=== PATIENT | female | born 1970 | race African-American/Black ===

== ENCOUNTER 2019-03-08 18:59 | Emergency (ER) | payer MEDICAID ==
[~2019-03-08] VITALS: Ht 162.6 cm; Wt 75.0 kg
[2019-03-08] MEDS ORDERED: SODIUM CHLORIDE 0.9% 1,000 ML IV ONE (22:32)
[2019-03-08] MEDS ORDERED: ONDANSETRON HCL 4MG/2ML INJ IV STA (22:32)
[2019-03-08] MEDS ORDERED: MORPHINE SULFATE 4 MG/ML CPJ (NOT FOR IM USE) IV STA (22:32)
[2019-03-08] MEDS ORDERED: DIATR MEGLU/DIATRIZOATE SOLN 30ML ONE (22:50)
[2019-03-08 23:14] LABS: EOSINOPHILS % 0.9 % (0.0-5.0); HEMATOCRIT. 45.3 % (36.0-48.0); HEMOGLOBIN. 15.2 g/dL (12.0-16.0); LYMPHOCYTES % 31.7 % (20.0-50.0); MEAN CORPUSCULAR HEMOGLOBIN 31.5 pg (28.0-32.0); MEAN CORPUSCULAR VOLUME 93.7 fL (81.0-99.0); MEAN PLATELET VOLUME 9.3 fl (7.4-10.4); MONOCYTES % 8.5 % (2.0-8.0); NEUTROPHILS % 57.9 % (40.0-76.0); PLATELET 231 x1000/uL (130-400); RED BLOOD CELL COUNT 4.83 mill/uL (4.2-5.4); RED CELL DISTRIBUTION WIDTH 12.8 % (11.6-14.6)
[2019-03-08 23:20] LABS: CHLORIDE 107 mEq/L (98-107); PROTHROMBIN TIME 10.8 sec (9.6-11.0)
[2019-03-09] MEDS ORDERED: POTASSIUM CHLORIDE 20MEQ TABLET SR PO ONE
[2019-03-09 00:50] LABS: CLARITY URINE CLEAR (CLEAR); COLOR URINE YELLOW (YELLOW); KETONES URINE TRACE (NEGATIVE); LEUKOCYTE ESTERASE URINE TRACE (NEGATIVE); NITRITE URINE NEGATIVE (NEGATIVE); OCCULT BLOOD URINE NEGATIVE (NEGATIVE); PH URINE 5.5 (4.5-8.0); PROTEIN URINE TRACE (NEGATIVE); SPECIFIC GRAVITY URINE 1.023 (1.005-1.030)
[2019-03-09] MEDS ORDERED: IOHEXOL-300 100 ML BOTTLE ONE (02:22)
[2019-03-09] MEDS ORDERED: MORPHINE SULFATE 4 MG/ML CPJ (NOT FOR IM USE) IV ONE (02:30)
[2019-03-09 03:07] VITALS: BP 125/91
== END 2019-03-09 03:14 | disposition home or self-care (01) ==
LOC: ER 18:59
DX: S20.212A Contusion of left front wall of thorax, initial encounter (principal); S20.211A Contusion of right front wall of thorax, initial encounter; W18.2XXA Fall in (into) shower or empty bathtub, initial encounter; Y93.E1 Activity, personal bathing and showering; Y92.091 Bathroom in other non-institutional residence as the place of occurrence of the external cause; Z71.89 Other specified counseling; D18.09 Hemangioma of other sites; K76.9 Liver disease, unspecified; F17.210 Nicotine dependence, cigarettes, uncomplicated; Z71.6 Tobacco abuse counseling; F12.90 Cannabis use, unspecified, uncomplicated
CPT/HCPCS: 36415; 71260; 74177; 80053; 81003; 83690; 85025; 85610; 87086; 96374; 96375; 96376; 99284; 99406; J2270; J2405; J7030; Q9963; Q9967; Z7610